=== PATIENT | female | born 1935 | race Caucasian/White ===

== ENCOUNTER 2017-05-29 11:46 | Outpatient (CLI) | payer MEDICARE, BC | END 2017-05-29 11:47 | disposition home or self-care (01) | LOC: BICMAMMO 11:46 | PROVIDERS: ATTEND Family Medicine | DX: Z12.31 Encounter for screening mammogram for malignant neoplasm of breast (principal) | CPT/HCPCS: 77063; 77067 ==

== ENCOUNTER 2018-06-18 14:43 | Outpatient (CLI) | payer MEDICARE, BC ==
--- NOTE | 2018-06-22 13:26 | MMO ---
Bilateral MAMMO Bilat Screen [facility]. CLINICAL HISTORY: Patient is 82 years old and is seen for screening. The patient has no family history of breast cancer. The patient has no personal history of cancer. VIEWS: The views performed were: bilateral craniocaudal with tomosynthesis and bilateral mediolateral oblique with tomosynthesis. FILMS COMPARED: The present examination has been compared to prior imaging studies performed at [facility] on 04/21/2014, 04/25/2015, 05/13/2016 and 05/29/2017, and at [facility] on 03/03/2009, 03/05/2010, 03/19/2010, 03/14/2011, 04/02/2012 and 04/20/2013. MAMMOGRAM FINDINGS: Finding 1: There are stable benign appearing calcifications seen in both breasts. Finding 2: There is a stable intramammary lymph node seen in the right breast. There are no suspicious masses, suspicious calcifications, or new areas of architectural distortion. IMPRESSION: THERE IS NO MAMMOGRAPHIC EVIDENCE OF MALIGNANCY. A ROUTINE FOLLOW-UP MAMMOGRAM IN 1 YEAR IS RECOMMENDED. THE RESULTS OF THIS EXAM WERE SENT TO THE PATIENT. ACR BI-RADS Category 2 - Benign finding MAMMOGRAPHY NOTE: 1. A negative mammogram report should not delay a biopsy if a dominant of clinically suspicious mass is present. 2. Approximately 10% to 15% of breast cancers are not detected by mammography. 3. Adenosis and dense breasts may obscure an underlying neoplasm.
== END 2018-06-18 14:44 | disposition home or self-care (01) ==
LOC: BICMAMMO 14:43
PROVIDERS: ATTEND Family Medicine
DX: Z12.31 Encounter for screening mammogram for malignant neoplasm of breast (principal)
CPT/HCPCS: 77063; 77067

== ENCOUNTER 2019-07-21 11:25 | Outpatient (CLI) | payer MEDICARE, BC ==
--- NOTE | 2019-07-21 12:27 | MMO ---
Bilateral MAMMO Bilat Screen [facility]. CLINICAL HISTORY: Patient is 84 years old and is seen for screening. The patient has no family history of breast cancer. The patient has no personal history of cancer. VIEWS: The views performed were: bilateral craniocaudal with tomosynthesis and bilateral mediolateral oblique with tomosynthesis. FILMS COMPARED: The present examination has been compared to prior imaging studies performed at [facility] on 05/13/2016, 05/29/2017 and 06/18/2018. This study has been interpreted with the assistance of computer-aided detection. MAMMOGRAM FINDINGS: The breasts are heterogeneously dense, which could obscure a lesion on mammography. There are stable benign appearing calcifications seen in both breasts. There are no suspicious masses, suspicious calcifications, or new areas of architectural distortion. IMPRESSION: THERE IS NO MAMMOGRAPHIC EVIDENCE OF MALIGNANCY. A ROUTINE FOLLOW-UP MAMMOGRAM IN 1 YEAR IS RECOMMENDED. THE RESULTS OF THIS EXAM WERE SENT TO THE PATIENT. ACR BI-RADS Category 2 - Benign finding MAMMOGRAPHY NOTE: 1. A negative mammogram report should not delay a biopsy if a dominant of clinically suspicious mass is present. 2. Approximately 10% to 15% of breast cancers are not detected by mammography. 3. Adenosis and dense breasts may obscure an underlying neoplasm. Reported by: DARYA SLADE MD Electonically Signed: [id number]
== END 2019-07-21 11:26 | disposition home or self-care (01) ==
LOC: BICMAMMO 11:25
PROVIDERS: ATTEND Family Medicine
DX: Z12.31 Encounter for screening mammogram for malignant neoplasm of breast (principal)
CPT/HCPCS: 77063; 77067

== ENCOUNTER 2019-10-26 11:29 | Emergency (ER) | payer MEDICARE, BC, OTHER ==
[2019-10-27 11:42] LABS: SARS-CoV-2 MS2 Positive; SARS-CoV-2 N Gene Negative; SARS-CoV-2 S Gene Negative; SARS-CoV-2 by NAA Not Detected (NotDetected); SARS-CoV-2 orf1ab Negative
== END 2019-10-26 11:47 | disposition home or self-care (01) ==
LOC: ERS 11:29
DX: Z20.828 Contact with and (suspected) exposure to other viral communicable diseases (principal); I10 Essential (primary) hypertension; E03.9 Hypothyroidism, unspecified; E78.5 Hyperlipidemia, unspecified; I48.91 Unspecified atrial fibrillation
CPT/HCPCS: 87635; 99283; U0003

== ENCOUNTER 2020-08-01 12:39 | Outpatient (CLI) | payer MEDICARE, BC | END 2020-08-01 12:40 | disposition home or self-care (01) | LOC: BICMAMMO 12:39 | PROVIDERS: ATTEND Family Medicine | DX: Z12.31 Encounter for screening mammogram for malignant neoplasm of breast (principal); Z91.89 Other specified personal risk factors, not elsewhere classified | CPT/HCPCS: 77063; 77067 ==

== ENCOUNTER 2021-08-06 09:57 | Outpatient (CLI) | payer MEDICARE, BC | END 2021-08-06 09:58 | disposition home or self-care (01) | LOC: BICMAMMO 09:57 | PROVIDERS: ATTEND Family Medicine | DX: Z12.31 Encounter for screening mammogram for malignant neoplasm of breast (principal); M81.0 Age-related osteoporosis without current pathological fracture; M85.89 Other specified disorders of bone density and structure, multiple sites; E04.2 Nontoxic multinodular goiter; Z91.89 Other specified personal risk factors, not elsewhere classified | CPT/HCPCS: 76536; 77063; 77067; 77080 ==

== ENCOUNTER 2021-08-21 09:33 | Outpatient (CLI) | payer MEDICARE, BC ==
[2021-08-21] MEDS ORDERED: Iopamidol 370 76% 100 ML VIAL ONE (15:14)
== END 2021-08-21 09:34 | disposition home or self-care (01) ==
LOC: CT 09:33
PROVIDERS: ATTEND Internal Medicine Cardiovascular Disease
DX: R55 Syncope and collapse (principal); I65.22 Occlusion and stenosis of left carotid artery; I70.8 Atherosclerosis of other arteries; E04.2 Nontoxic multinodular goiter; R91.1 Solitary pulmonary nodule
CPT/HCPCS: 70498; 82565; Q9967

== ENCOUNTER 2022-08-14 10:24 | Outpatient (CLI) | payer MEDICARE, BC | END 2022-08-14 10:25 | disposition home or self-care (01) | LOC: BICMAMMO 10:24 | PROVIDERS: ATTEND Family Medicine | DX: Z12.31 Encounter for screening mammogram for malignant neoplasm of breast (principal); Z91.89 Other specified personal risk factors, not elsewhere classified | CPT/HCPCS: 77063; 77067 ==

== ENCOUNTER 2022-11-28 13:14 | Outpatient (CLI) | payer MEDICARE, BC | END 2022-11-28 13:15 | disposition home or self-care (01) | LOC: RAD 13:14 | PROVIDERS: ATTEND Internal Medicine Rheumatology | DX: M81.0 Age-related osteoporosis without current pathological fracture (principal) | CPT/HCPCS: 72070 ==

== ENCOUNTER 2022-11-30 10:45 | Emergency (ER) | payer OTHER, MEDICARE, BC ==
[2022-11-30 12:37] LABS: #Monocytes 0.5 thou/uL (0.11-0.59); #Neutrophils 4.7 thou/uL (1.40-6.50); %Basophils 0.2 % (0.0-1.0); %Eosinophils 0.2 % (0.0-10.0); %Lymphocytes 14.3 % (21.0-51.0); %Monocytes 8.5 % (0.0-10.0); %Neutrophils 76.5 % (42.0-75.0); Hematocrit 35.8 % (36.0-47.0); Hemoglobin 12.4 g/dL (12.0-16.0); Mean Corpuscular HGB CONC 34.6 g/dL (32.0-36.0); Mean Corpuscular Volume 95.2 fl (78.0-98.0); Mean Platelet Volume 11.3 fL (7.4-10.4); Platelet Count 141 10x3/uL (130-400); RBC Distribution Width 13.2 % (11.5-14.5); Red Blood Cell (RBC) Count 3.76 mill/uL (4.20-5.40); White Blood Cell (WBC) Count 6.2 10x3/uL (4.8-10.8)
[2022-11-30 12:58] LABS: ALT (SGPT) 15 U/L (8-55); AST (SGOT) 20 U/L (5-34); Albumin 3.8 g/dL (3.4-4.8); Alkaline Phosphatase 49 U/L (40-110); Anion Gap 14 mmol/L (10-20); BUN (Urea Nitrogen) 13 mg/dL (9.8-20.1); Bilirubin, Total 0.6 mg/dL (0.2-1.2); Calc. Creatinine Clearance 0 mL/min (70-130); Calcium 8.7 mg/dL (7.8-10.44); Carbon Dioxide 24 mmol/L (23-31); Chloride 99 mmol/L (98-107); Estimated GFR 72; Globulin 2.9 g/dL (2.4-3.5); Glucose 112 mg/dL (83-110); Potassium 3.6 mmol/L (3.5-5.1); Protein, Total 6.7 g/dL (5.8-8.1); Sodium 133 mmol/L (136-145)
[2022-11-30 13:09] LABS: Troponin I 0.024 ng/mL (< 0.028)
[2022-11-30 13:12] LABS: SARS-CoV-2 NAA Rapid Test Not Detected (NotDetected)
== END 2022-11-30 13:27 | disposition home or self-care (01) ==
LOC: ERS 10:45
DX: S09.90XA Unspecified injury of head, initial encounter (principal); F07.81 Postconcussional syndrome; E78.5 Hyperlipidemia, unspecified; I10 Essential (primary) hypertension; W18.30XA Fall on same level, unspecified, initial encounter; Y92.89 Other specified places as the place of occurrence of the external cause; Z79.899 Other long term (current) drug therapy; Z20.822 Contact with and (suspected) exposure to COVID-19
CPT/HCPCS: 0240U; 70450; 71045; 72125; 80053; 84484; 85025; 93005; 96360

== ENCOUNTER 2022-12-03 12:18 | Emergency (ER) | payer MEDICARE, BC ==
[~2022-12-03 12:18] MED LIST: Iopamidol-370 76% 500 ML MDV (1 ML CHARGE) ONE
[2022-12-03] MEDS ORDERED: Ondansetron PF 4 MG/2 ML Vial ONE (12:37)
[2022-12-03] MEDS ORDERED: Morphine 2 MG/ML VIAL ONE (12:37)
[2022-12-03 13:07] LABS: #Eosinphils 0.1 thou/uL (0.0-0.7); #Monocytes 0.5 thou/uL (0.11-0.59); #Neutrophils 4.3 thou/uL (1.40-6.50); %Basophils 0.5 % (0.0-1.0); %Eosinophils 0.9 % (0.0-10.0); %Lymphocytes 23.4 % (21.0-51.0); %Monocytes 8.1 % (0.0-10.0); %Neutrophils 66.6 % (42.0-75.0); Hematocrit 34.5 % (36.0-47.0); Mean Corpuscular HGB CONC 34.8 g/dL (32.0-36.0); Mean Corpuscular Hemoglobin 33.4 pg (27.0-31.0); Mean Corpuscular Volume 96.1 fl (78.0-98.0); Mean Platelet Volume 11.4 fL (7.4-10.4); Platelet Count 143 10x3/uL (130-400); RBC Distribution Width 13.2 % (11.5-14.5); Red Blood Cell (RBC) Count 3.59 mill/uL (4.20-5.40); White Blood Cell (WBC) Count 6.4 10x3/uL (4.8-10.8)
[2022-12-03 13:35] LABS: Bacteria/HPF None Seen HPF (None Seen); Bilirubin Negative (Negative); Blood, Urine 1+ (Negative); CAUTI Indications for Culture Pelvic or flank pain; Clarity Clear (Clear); Glucose, Urine (Dipstick) Normal (Negative); Ketone, Urine Negative (Negative); Leukocyte Negative Leu/uL (Negative); Nitrite Negative (Negative); Protein, Urine (Dipstick) Negative (Neg-Trace); RBC/HPF 0-3 HPF (0-3); Specific Gravity, Urine 1.007 (1.002-1.036); Squamous Epithelial None Seen HPF (0-3); Urobilinogen Normal mg/dL (Less than 2); WBC/HPF 0-3 HPF (0-3)
[2022-12-03 13:37] LABS: Urine Culture Reflex No No
[2022-12-03 13:45] LABS: Troponin I Less than 0.010 ng/mL (< 0.028)
[2022-12-03 13:53] LABS: ALT (SGPT) 12 U/L (8-55); AST (SGOT) 23 U/L (5-34); Albumin 3.7 g/dL (3.4-4.8); Alkaline Phosphatase 50 U/L (40-110); Anion Gap 13 mmol/L (10-20); BUN (Urea Nitrogen) 10 mg/dL (9.8-20.1); Bilirubin, Total 0.7 mg/dL (0.2-1.2); Calc. Creatinine Clearance 0 mL/min (70-130); Calcium 8.8 mg/dL (7.8-10.44); Carbon Dioxide 25 mmol/L (23-31); Chloride 99 mmol/L (98-107); Estimated GFR 78; Glucose 100 mg/dL (83-110); Lipase 103 U/L (8-78); Protein, Total 6.7 g/dL (5.8-8.1); Sodium 133 mmol/L (136-145)
[2022-12-03] MEDS ORDERED: Acetaminophen 500 MG TAB ONE (14:39)
[2022-12-03] MEDS ORDERED: Lidocaine 4% Patch TD SCH (14:45)
[2022-12-04] MEDS ORDERED: Transdermal Patch Removal TOP SCH (04:00)
== END 2022-12-03 16:49 | disposition home or self-care (01) ==
LOC: ERS 12:18
DX: S20.212A Contusion of left front wall of thorax, initial encounter (principal); J90 Pleural effusion, not elsewhere classified; E03.9 Hypothyroidism, unspecified; E78.5 Hyperlipidemia, unspecified; I10 Essential (primary) hypertension; Z79.899 Other long term (current) drug therapy; W19.XXXA Unspecified fall, initial encounter
CPT/HCPCS: 71045; 71260; 74177; 80053; 81001; 83690; 83880; 84484; 85025; 93005; 96374; 96375; J2272; J2405; Q9967

== ENCOUNTER 2023-08-21 13:38 | Emergency (ER) | payer MEDICARE ==
[2023-08-21] MEDS ORDERED: Lidocaine 1% PF 5 ML VIAL ONE (17:56)
[2023-08-21] MEDS ORDERED: CEFAZOLIN 2 GM VIAL ONE (19:00)
[2023-08-21] MEDS ORDERED: Sodium Chloride 0.9% 100 ML ONE (19:00)
[2023-08-21 20:11] LABS: #Basophils 0.03 10x3/uL (0.0-0.2); %Basophils 0.6 % (0.0-1.0); %Eosinophils 0.8 % (0.0-10.0); %Monocytes 7.6 % (0.0-10.0); %Neutrophils 58.8 % (42.0-75.0); Hematocrit 39.6 % (36.0-47.0); Hemoglobin 13.6 g/dL (12.0-16.0); Mean Corpuscular HGB CONC 34.3 g/dL (32.0-36.0); Mean Corpuscular Hemoglobin 33.5 pg (27.0-31.0); Mean Corpuscular Volume 97.5 fL (78.0-98.0); Mean Platelet Volume 10.5 fL (7.4-10.4); Platelet Count 185 10x3/uL (130-400); RBC Distribution Width 13.7 % (11.5-14.5); Red Blood Cell (RBC) Count 4.06 mill/uL (4.20-5.40)
[2023-08-21 20:24] LABS: INR-International Normal Ratio 1.1; Prothrombin Time 13.7 sec (12.0-14.7)
[2023-08-21 20:25] LABS: ALT (SGPT) 16 U/L (8-55); AST (SGOT) 21 U/L (5-34); Albumin 3.8 g/dL (3.4-4.8); Alkaline Phosphatase 56 U/L (40-110); Anion Gap 13 mmol/L (10-20); BUN (Urea Nitrogen) 11 mg/dL (9.8-20.1); Bilirubin, Total 0.5 mg/dL (0.2-1.2); Calc. Creatinine Clearance 0 mL/min (70-130); Calcium 8.7 mg/dL (7.8-10.44); Carbon Dioxide 25 mmol/L (23-31); Chloride 102 mmol/L (98-107); Estimated GFR 62; Globulin 3.3 g/dL (2.4-3.5); Glucose 103 mg/dL (83-110); PTT 30.3 sec (22.9-36.1); Potassium 4.3 mmol/L (3.5-5.1); Protein, Total 7.1 g/dL (5.8-8.1); Sodium 136 mmol/L (136-145)
== END 2023-08-21 21:07 | disposition left against medical advice (07) ==
LOC: ERS 13:38
DX: S62.633B Displaced fracture of distal phalanx of left middle finger, initial encounter for open fracture (principal); S60.415A Abrasion of left ring finger, initial encounter; I48.91 Unspecified atrial fibrillation; I10 Essential (primary) hypertension; W20.8XXA Other cause of strike by thrown, projected or falling object, initial encounter; Z55.6 Problems related to health literacy; Z79.01 Long term (current) use of anticoagulants
CPT/HCPCS: 12001; 36415; 71045; 80053; 85025; 85610; 85730; 96374; J3490